=== PATIENT | female | born 1980 | race Asian ===

== ENCOUNTER 2017-03-06 18:36 | Emergency (ER) | payer OTHER ==
[2017-03-06 18:50] VITALS: BP 120/86; PULSE 90; RESP 14; O2SAT 97
[2017-03-06] MEDS ORDERED: LETS SOLN TOPICAL 1 EA SYR TP ONE (19:20)
--- NOTE | 2017-03-06 20:14 | UCPHY ---
H & P Time Seen by Provider: 03/06/17 19:12 Patient Type: New HPI/ROS: This patient has a left ring finger laceration from a knife at the cutting frozen immediate home shortly prior to arrival. She reports mild pain and bleeding. The bleeding slowed with direct pressure prior to arrival. ROS: No numbness. No difficulty moving the affected finger. No other injuries. 5 point ROS is otherwise negative. Past Medical/Surgical History: Otherwise healthy with immunizations up today Smoking Status: Never smoked Physical Exam: Physical Exam Vital signs are normal. General: No acute distress Eyes: Pupils equal and react to light. Extraocular motions are intact. Cardiac: Brisk capillary refill is intact throughout. Skin: No rash or pallor. There is a 1.3 cm full-thickness laceration of the dorsum of the left ring finger. Subcutaneous tissues evident but no tendon injury or other deeper structures are injured. There are no foreign bodies. There is minimal bleeding. Neuro: Alert and oriented x3 with no sensorimotor deficits. Constitutional: Initial Vital Signs Temperature (C) 37 C 03/06/17 18:46 Heart Rate 90 03/06/17 18:46 Respiratory Rate 14 03/06/17 18:46 Blood Pressure 120/86 H 03/06/17 18:46 O2 Sat (%) 97 03/06/17 18:46 O2 Delivery Mode Room Air Allergies/Adverse Reactions: albuterol sulfate [From Ventolin HFA] Allergy (Verified 03/06/17 18:45) MDM/Departure - MDM Procedures: The wound is 1.3 cm full-thickness. The wound was copiously irrigated with saline. The wound was explored for foreign bodies and none were found. The wound was prepped and draped in the normal sterile fashion. The wound was anesthetized using topical lidocaine followed by 1% plain lidocaine local injection, 27 gauge needle-less than 1 mL with good effect. The edges were reapproximated using 4 0 Prolene-4 running sutures with good hemostasis and cosmesis. The patient tolerated the procedure well. There were no complications. Patient is placed in tube gauze and we counseled regarding wound care. Medications Given: Discontinued Medications Tetracaine/Epinephrine/Lidocaine (Lets Soln Topical) 1 ea TP EDNOW ONE Stop: 03/06/17 19:21 Last Admin: 03/06/17 19:25 Dose: 1 ea - Depart Disposition: Home, Routine, Self-Care Clinical Impression: Finger laceration Qualifiers: Encounter type: initial encounter Qualified Code(s): S61.219A - Laceration without foreign body of unspecified finger without damage to nail, initial encounter Condition: Good Instructions: Finger Laceration (ED) Additional Instructions: Diagnosis: Finger laceration Plan: Keep the wound clean and dry for the next 2 days. Then clean it daily with warm soapy water Tylenol or ibuprofen for pain control as needed Return for suture removal in 10-12 days Return sooner for redness, discharge or other concerns for infection. Referrals: TONIA JETT [Primary Care Provider] - As per Instructions - PQRS PQRS Measurement: NA
[2017-03-17 17:19] VITALS: TEMP 98.2
== END 2017-03-06 20:25 | disposition home or self-care (01) ==
LOC: CED 18:36
PROC: 0HQGXZZ Repair Left Hand Skin, External Approach (ICD-10-PCS; principal; 2017-03-06)
DX: S61.215A Laceration without foreign body of left ring finger without damage to nail, initial encounter (principal); W26.0XXA Contact with knife, initial encounter
CPT/HCPCS: 12001-PO; 99203-PO; G0463-PO

== ENCOUNTER → 2018-09-13 | Outpatient (CLI) | payer OTHER | LOC: FIMAGING 13:27 | PROVIDERS: ATTEND Obstetrics & Gynecology | DX: Z36.82 Encounter for antenatal screening for nuchal translucency (principal); O09.521 Supervision of elderly multigravida, first trimester; Z3A.11 11 weeks gestation of pregnancy ==

== ENCOUNTER → 2018-10-11 | Outpatient (CLI) | payer OTHER | LOC: FIMAGING 14:32 | PROVIDERS: ATTEND Obstetrics & Gynecology | DX: O09.522 Supervision of elderly multigravida, second trimester (principal); O09.212 Supervision of pregnancy with history of pre-term labor, second trimester; Z3A.16 16 weeks gestation of pregnancy ==

== ENCOUNTER → 2018-10-25 | Outpatient (CLI) | payer OTHER | LOC: FIMAGING 14:56 | PROVIDERS: ATTEND Obstetrics & Gynecology | DX: O09.522 Supervision of elderly multigravida, second trimester (principal); O09.292 Supervision of pregnancy with other poor reproductive or obstetric history, second trimester; Z3A.18 18 weeks gestation of pregnancy ==

== ENCOUNTER → 2018-11-08 | Outpatient (CLI) | payer OTHER | LOC: FIMAGING 09:45 | PROVIDERS: ATTEND Obstetrics & Gynecology | DX: O09.522 Supervision of elderly multigravida, second trimester (principal); O09.292 Supervision of pregnancy with other poor reproductive or obstetric history, second trimester; Z3A.20 20 weeks gestation of pregnancy ==

== ENCOUNTER → 2018-11-24 | Outpatient (CLI) | payer OTHER | LOC: FIMAGING 14:36 | PROVIDERS: ATTEND Obstetrics & Gynecology | DX: O09.522 Supervision of elderly multigravida, second trimester (principal); Z3A.22 22 weeks gestation of pregnancy ==

== ENCOUNTER 2019-01-17 15:09 | Observation (INO) | payer OTHER ==
[2019-01-17] MEDS ORDERED: BETAMETHASONE IM SYRINGE IM ONE (16:00)
--- NOTE | 2019-01-17 19:09 | GHP ---
[f rep st] HISTORY AND PHYSICAL DATE OF ADMISSION: 01/17/2019 ADMITTING DIAGNOSES: 1. IUP at 30 weeks and 1 day. 2. Short cervical length. 3. History of premature cervical dilation with ultimate term delivery. HISTORY OF PRESENT ILLNESS: The patient is a 38-year-old, G2, P1-0-0-1, at 30 weeks and 1 day with estimated due date 03/27/2019 by last menstrual period, , and consistent with 8 week ultrasound. The patient presented to [facility] today for follow up and saw Dr. Tellez. Her is complicated by AMA with negative genetic testing and also a history of premature cervical dilation with ultimate term delivery. The patient had reassuring cervical length surveillance with [facility] from 16 to 24 weeks. The patient then had an episode of vaginal spotting at 20 weeks and was assessed in our office and her cervix was reportedly closed on exam but found to be shortened at 1.5 cm and 5mm with Valsalva. Pt was started on vaginal progesterone, but stopped 1 week ago secondary to side effects. Patient denies any contractions or menstrual-type cramping. The patient does endorse [place] that she has had since 20 weeks, these are not painful. The patient denies any leakage of fluid or vaginal bleeding. Patient states there is good movement. The patient also has gestational diabetes that is diet-controlled in this . The patient did have a low-lying placenta noted on 20 week ultrasound but resolved at 22 weeks on ultrasound. PAST OB HISTORY: In 06/2014, she delivered a viable male , at 39 weeks 3 days, weighing 7 pounds 10 ounces. The patient did have premature cervical dilation at 29 weeks and dilated to 4 cm; she was admitted to [facility] until 32 weeks, but then delivered term. In 08/2016, she had a 6-week SAB, no D and C. GYNECOLOGIC HISTORY: Age of menarche 12. Cycles are every 26 to 30 days for 3- 4 days. LMP 06/20/2018. The patient denies a history of abnormal Pap smears or any exposure to STDs. CURRENT MEDICATIONS: Include OTC vitamins with DHA. ALLERGIES: Ventolin; adverse effect of increased heart rate and shortness of breath. MEDICAL HISTORY: Remarkable for PCOS, history of palpitations with a negative workup at [facility], gastroesophageal reflux disease, kidney stone which was an incidental finding on CT, patient asymptomatic. PAST SURGICAL HISTORY: Endoscopy in 2010 and 2014. Hysterosalpingogram. Left broken wrist at age 11. FAMILY HISTORY: Paternal grandmother, type 2 diabetes. Mother, thyroid dysfunction. Father, alcohol abuse and prostate cancer. Paternal grandmother, colon cancer, at age 70. SOCIAL HISTORY: Patient is . 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 She lives with her and their son. She denies any alcohol, tobacco, or illicit drug use during the . LABS: H and H first-trimester, 15.6 and 40.3, platelets 261. Blood type is B positive, antibody negative. One-hour Glucola was 168; 3 hour Glucola was 84, 176, 179, 152. RPR nonreactive. Rubella immune. Hepatitis B surface antigen negative. HIV negative. Trio screen negative in 2013. Standard panel negative 08/2018. TSH 1st trimester, 1.03. Urine drug screen, UA and culture negative. Pap, gonorrhea, and chlamydia cultures negative. AFP negative and Innatal screen negative. Varicella immune. REVIEW OF SYSTEMS: 10-point review of systems is negative; pertinent positives noted in HPI. PHYSICAL EXAMINATION: VITAL SIGNS: On admission vital signs are stable. Patient is afebrile at 37.2, heart rate 116, respirations 16, blood pressure 115 /79. GENERAL APPEARANCE: She is well-nourished, well-developed female. Alert and oriented x3. No apparent distress. SKIN: Warm, dry without rash. NEURO: Grossly intact. CARDIOVASCULAR: Regular rate and rhythm. LUNGS: Clear to auscultation bilaterally. ABDOMEN: Gravid, soft, nontender. PELVIC: Exam is deferred at this time. EXTREMITIES: Normal to inspection without calf tenderness or edema. heart tones are reassuring, Category I tracing with baseline 140 bpm, positive accels, no decels and moderate variability. On toco, initially there were 2 contractions seen and none since. ASSESSMENT/PLAN: Patient is a 38-year-old, G3, para 1-0-0-1, at 30 weeks and 1 day, who presents with shortened cervical length 1. Admit to Labor and Delivery for observation. 2. With a shortened cervix, patient is at increased risk of delivery, even though patient is asymptomatic at this time. 3. Did not perform SVE secondary to patient being asymptomatic and no contractions seen on toco. 4. A course of betamethasone was started for lung maturity; 1st dose given at 1620 this evening, will repeat in 24 hours. 5. Plan per Maternal Medicine, Dr. Tellez. 6. Will monitor for any signs or symptoms of labor. /[id number]/MODL MTDD
--- NOTE | 2019-01-18 09:07 | OBPROG ---
Labor Progress Note Assessment/Plan: Assessment: 38 at 30w1d with cervical shortening, but currently no signs of PTL. Plan- 2nd betamethasone injection this afternoon and then dc home with PTL precautions. FU in office in 1-2 weeks. Tigist Shields MD, FACOG 01/18/19 09:06 Subjective/Intrapartum Course: 01/18/19 09:04 Pt doing well. Occasional contraction - no different than the past few weeks. No VB, no LOF. Good FM. Slept some overnight, but dry air in hospital is bothersome. . 01/18/19 09:06 Objective: 37.2 14 115 117/68 gen - pleasant, NAD, nl affect, not anxious HEENT - grossly wnl neck supple CV - RRR chest - CTAB abd - soft, gravid, NT, C/W 30 wk ext - no calf tenderness, no edema skin - warm, dry FHR last night 120s Oxytocin Orders Assessment - Pre-Induction/Augmentation Assessment Gestational Age: 30 week(s) and 1 day(s) ICD10 Worksheet Patient Problems: Problems Problem Status Onset Cervix funneling complicating Acute Finger laceration Acute Normal labor Acute
--- NOTE | 2019-01-18 09:25 | PDDCSUM ---
Discharge Summary Discharge Summary: Admit 01/17/19 Discharge 01/18/19 Hosp course: 38 admitted at 30w1d after cervical shortening and funneling noted at MFM exam, though no other symptoms of labor. During her period of observation, she did not have any regular contractions. No vaginal bleeding, no loss of fluid. VSS and afeb. She received a course of Betamethasone -on 01/17/19 and 01/18/19. She is to follow up in the office as previously scheduled in 2 weeks. No further cervical lengths, only digital exams per MFM recommendation. labor precautions reviewed. Tigist Shields MD, FACOG [facility]
[2019-01-18] MEDS ORDERED: BETAMETHASONE IM SYRINGE IM ONE (16:00)
== END 2019-01-18 18:30 | disposition home or self-care (01) ==
LOC: FLD 15:09 → OBSVTOIN 15:09 → INTOOBSV 15:09
PROVIDERS: ADMIT Obstetrics & Gynecology; ATTEND Hospitalist
PROC: 3E0E73Z Introduction of Anti-inflammatory into Products of Conception, Via Natural or Artificial Opening (ICD-10-PCS; principal; 2019-01-17)
DX: O47.03 False labor before 37 completed weeks of gestation, third trimester (principal); O26.873 Cervical shortening, third trimester; O24.410 Gestational diabetes mellitus in pregnancy, diet controlled; O09.523 Supervision of elderly multigravida, third trimester; Z3A.30 30 weeks gestation of pregnancy
CPT/HCPCS: 59025; G0378; J0702

== ENCOUNTER → 2019-01-17 | Outpatient (CLI) | payer OTHER | LOC: FIMAGING 14:05 | PROVIDERS: ATTEND Obstetrics & Gynecology | DX: O09.523 Supervision of elderly multigravida, third trimester (principal); O26.873 Cervical shortening, third trimester; Z3A.30 30 weeks gestation of pregnancy ==

== ENCOUNTER 2019-02-11 00:02 | Observation (INO) | payer OTHER ==
--- NOTE | 2019-02-11 02:19 | PDGENHP ---
History and Physical - Chief Complaint vaginal bleeding - History of Present Illness 38 at 33w5d presents with vaginal bleeding. Had some bleeding after a BM this morning, then this evening when was about to shower, noticed some more with wiping. Has some spotting on pad she wore here. Good FM, no LOF, not feeling any contractions. NO ssx preeclampsia. This c/b: Shortened cervix at 30 weeks - with a course of betamethasone given at that time , all per MFM. Hx of dilation / incompetent cervix. Was hospitalized from 29-32 weeks with her first , but ultimately delivered at 39 weeks, though had painless contractions. Arrived at 7 cm dilated only because was leaking fluid, then progressed painlessly to 10 cm, pushed for 2 hours and had an = not painful per pt. GDM - has been diet controlled - failed 2 values on the 3 hour test. Placenta previa - resolved by 28 wks. labs: B pos RubImm GBS unknown Innatal neg Ob hx - as above, 06/2014 6 wk SAB History Information - Allergies/Home Medication List Allergies/Adverse Reactions: albuterol sulfate [From Ventolin HFA] Allergy (Verified 03/06/17 18:45) Home Medications: Docosahexanoic Acid [ Dha] 200 mg PO DAILY 01/17/19 [Last Taken Unknown] I have personally reviewed and updated: family history, medical history, social history, surgical history Past Medical History: gest DM - diet controlled x 2. GERD. nephrolithiasis - Surgical History Additional surgical history: none - Family History Positive for: cancer (prostate, ), diabetes type II (PGM), hypertension (father) - Social History Smoking Status: Never smoked Alcohol Use: None Drug Use: None Review of Systems Review of Systems: ROS: 10pt was reviewed & negative except for what was stated in HPI & below Physical Exam Physical Exam: Speculum exam - small string of blood tinged mucous at os. SVE - 3 cm dilated / 50 / -3 US done - cephalic presentation confirmed. MVP 4.17cm, active fetus. NO previa. 37.5 107 18 123/78 FHR 135 reactive toco - q 5-7 min Constitutional: no apparent distress, appears nourished Eyes: PERRL, anicteric sclera, EOMI Ears, Nose, Mouth, Throat: moist mucous membranes, hearing normal, ears appear normal Cardiovascular: regular rate and rhythym Respiratory: no respiratory distress Gastrointestinal: normoactive bowel sounds, soft, non-tender abdomen, other ( gravid) Genitourinary: no bladder fullness Skin: warm, normal color Musculoskeletal: full muscle strength, no muscle tenderness Neurologic: AAOx3 Psychiatric: interacting appropriately, anxious Assessment & Plan Assessment: 38 33W5D with vaginal bleeding - likely secondary to cervical change. cervical dilation - concern for labor. S/P betamethasone 01/17-01/18. GDMA1 Plan: Check GBS in AM (just did digital cervical exam this evening). Rescue / repeat dose of betamethasone indicated per ACOG guidelines as concern for delivery in next 1- 7 days, <34 weeks, and greater than 2 weeks since initial course of betamethasone. Anticipate blood gluc to increase after betamethasone. Continue with observation. If cervix stable in AM and no further bleeding, could consider dc home, but currently, need more information. Tigist Shields MD, FACOG
[2019-02-11] MEDS ORDERED: BETAMETHASONE IM SYRINGE IM ONE (02:30)
--- NOTE | 2019-02-11 07:05 | OBPROG ---
Labor Progress Note Assessment/Plan: Assessment: 38 at 33w5d with contractions and cervical dilation to 3 cm. NO further vag bleeding. 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 S/p rescue dose betameth at 0315. GDMA1 Plan: Continue observation for now. Need to obtain GBS culture. Will treat with PCN for unknown status. If is appearing to labor, will need to get labs and start IV. Tigist Shields MD, FACOG, [facility] 02/11/19 07:39 Subjective/Intrapartum Course: 02/11/19 07:06 Pt was able to sleep intermittently, but is feeling contractions now - which she wasn't on arrival. No further vaginal bleeding. Objective: gen - pleasant, resting quietly in bed, appears comfortable. SVE - no change, no blood on glove after exam - SVE Dilation (cm): 3 Effacement (%): 50 Station: -3 Membranes: Intact - Contraction Pattern Assessment Current Contraction Pattern: Irregular - FHR Assessment Howell FHR (bpm): 140 FHR Pattern Variability: Moderate FHR Category: 1 Oxytocin Orders Assessment - Pre-Induction/Augmentation Assessment Gestational Age: 33 week(s) and 5 day(s) ICD10 Worksheet Patient Problems: Problems Problem Status Onset Cervix funneling complicating Acute Finger laceration Acute Normal labor Acute
[2019-02-11] MEDS ORDERED: PENICILLIN G POTASSIUM 5,000,000 UNIT in D5W 150 ML IV ONE (07:35)
[2019-02-11] MEDS ORDERED: IBUPROFEN 600 MG TAB PO PRN (09:04)
[2019-02-11] MEDS ORDERED: LIDOCAINE 1% 300 MG/30 ML SDV SC PRN (09:04)
[2019-02-11] MEDS ORDERED: MISOPROSTOL 200 MCG TAB PR PRN (09:04)
[2019-02-11] MEDS ORDERED: LR 1,000 ML IV PRN (09:04)
[2019-02-11] MEDS ORDERED: OXYTOCIN/RINGERS LACTATE 1,000 ML IV PRN (09:04)
[2019-02-11] MEDS ORDERED: EPSOM SALT 454 GM TP PRN (09:04)
[2019-02-11] MEDS ORDERED: OLIVE OIL 118 ML BTL MISC PRN (09:04)
--- NOTE | 2019-02-11 09:18 | OBPROG ---
Labor Progress Note Assessment/Plan: Assessment: IUP at 33w5d ctxns BMZ x2 at 30 wks, rescue BMZ at 3a GBS unknown Plan: cervix change and concern for active labor, cont PCN for unknown 02/11/19 09:13 Subjective/Intrapartum Course: 02/11/19 07:06 Pt was able to sleep intermittently, but is feeling contractions now - which she wasn't on arrival. No further vaginal bleeding. 02/11/19 09:16 Pt states ctxns only tight, no pain and likely could sleep through if at home. no bld with last trip to bathroom. on exam, cx was 5/75/-2 Objective: 02/11/19 08:20 - SVE Dilation (cm): 5 Effacement (%): 75 Station: -2 Membranes: Intact - Contraction Pattern Assessment Current Contraction Pattern: Regular (q 3-4, palpable), Irregular - FHR Assessment Howell FHR (bpm): 130 FHR Pattern Variability: Moderate FHR Category: 1 Oxytocin Orders Assessment - Pre-Induction/Augmentation Assessment Gestational Age: 33 week(s) and 5 day(s) ICD10 Worksheet Patient Problems: Problems Problem Status Onset labor in third trimester Acute
[2019-02-11] MEDS: PENICILLIN G POTASSIUM 2,500,000 UNIT in D5W 150 ML IV SCH ×2 (12:37→16:34)
[2019-02-11] MEDS ORDERED: LIDOCAINE 1% 300 MG/30 ML SDV ONE (13:49)
[2019-02-11] MEDS ORDERED: OLIVE OIL 118 ML BTL MISC ONE (13:49)
[2019-02-11] MEDS ORDERED: AMMONIA AROMATIC 1 EACH AMP IH ONE (13:49)
[2019-02-11] MEDS ORDERED: OXYTOCIN 10 UNIT/ML VIAL ONE (13:50)
[2019-02-11] MEDS ORDERED: MISOPROSTOL 200 MCG TAB ONE (13:50)
--- NOTE | 2019-02-11 18:01 | OBPROG ---
Labor Progress Note Assessment/Plan: Assessment: IUP at 33w5d ctxns - advanced cervical dilation - STABLE BMZ x2 at 30 wks, rescue BMZ at 3a GBS unknown - abx today - NOW WILL STOP AND IF CONT STABLE - WILL CHECK GBS TOMORROW PM GDM - A1 Plan: Will keep pt in house due to advanced dilation at this gestation. monitoring BS per routine, NSTs q shift 02/11/19 09:13 02/11/19 17:56 Subjective/Intrapartum Course: 02/11/19 07:06 Pt was able to sleep intermittently, but is feeling contractions now - which she wasn't on arrival. No further vaginal bleeding. 02/11/19 09:16 Pt states ctxns only tight, no pain and likely could sleep through if at home. no bld with last trip to bathroom. on exam, cx was 5/75/-2 02/11/19 17:59 Pt not feeling any discomfort with ctxns. Has been trying to rest - really feels these ctxns no different than for the last month. some light vag bleeding when urinating. GFM. no LOF. Disc stable exam with pt/husb. Will cont to observe here in hospital - q shift for NSTs and pt advised to alert us for any change. will stop abx and check GBS culture in 24 hrs Objective: 02/11/19 08:20 Patient ABO/Rh B POSITIVE 02/11/19 09:45 - SVE Dilation (cm): 5 Effacement (%): 75 Station: -2 Membranes: Intact - Contraction Pattern Assessment Current Contraction Pattern: Regular (q 3-4, palpable), Irregular (q 6 - 10 min) - FHR Assessment Howell FHR (bpm): 130 FHR Pattern Variability: Moderate FHR Category: 1 Oxytocin Orders Assessment - Pre-Induction/Augmentation Assessment Gestational Age: 33 week(s) and 5 day(s) ICD10 Worksheet Patient Problems: Problems Problem Status Onset labor in third trimester Acute
--- NOTE | 2019-02-12 08:16 | OBPROG ---
Labor Progress Note Assessment/Plan: Assessment: 38 at 33w5d with contractions and cervical dilation to 3 cm. NO further vag bleeding. No cervical warp changer 5+ hours, but pt feeling contractions more. S/p rescue dose betameth at 0315. GDMA1 Plan: Continue observation for now. Need to obtain GBS culture. Will treat with PCN for unknown status. If is appearing to labor, will need to get labs and start IV. Tigist Shields MD, FACOG, [facility] 02/11/19 07:39 A/P: 38 at 33w6d, contractions, advanced cervical dilation to 5cm - but no change during day yesterday - will not repeat exam today as no increase in contractions. Some VB - now only with wiping - likely from cervical change. S/P rescue dose betamethasone on 02/11/19. GBS unknown / - received PCN yesterday, but stopped when delivery did not seem imminent. Will observe, obtain GBS tomorrow prior to considering dc home. Will check in with MFM tomorrow when here for any additional input. GDMA1 = continue with diet and checking blood sugars - good control. Tigist Shields MD, FACOG 02/12/19 08:16 Subjective/Intrapartum Course: 02/11/19 07:06 Pt was able to sleep intermittently, but is feeling contractions now - which she wasn't on arrival. No further vaginal bleeding. 02/11/19 09:16 Pt states ctxns only tight, no pain and likely could sleep through if at home. no bld with last trip to bathroom. on exam, cx was 5/75/-2 02/11/19 17:59 Pt not feeling any discomfort with ctxns. Has been trying to rest - really feels these ctxns no different than for the last month. some light vag bleeding when urinating. GFM. no LOF. Disc stable exam with pt/husb. Will cont to observe here in hospital - q shift for NSTs and pt advised to alert us for any change. will stop abx and check GBS culture in 24 hrs 02/12/19 08:23 Pt doing well. Was able to get some sleep last night and relax. Contractions are mild, and no significant change. Only having some bloody mucous with wiping , nothing on pad she wore all night. Good FM, no LOF. Objective: 02/11/19 08:20 Patient ABO/Rh B POSITIVE 02/11/19 09:45 36.3 103 106/63 NST not done yet today. 130 reactive at 2230 last night. No blood on peripad. ' Gen - pleasant, NAD CV - RRR chest - CTAB abd - gravid, soft, NT ext - BLE calves NT, no edema - SVE Membranes: Intact - Contraction Pattern Assessment Current Contraction Pattern: Regular (q 3-4, palpable), Irregular (q 6 - 10 min) Oxytocin Orders Assessment - Pre-Induction/Augmentation Assessment Gestational Age: 33 week(s) and 5 day(s) ICD10 Worksheet Patient Problems: Problems Problem Status Onset labor in third trimester Acute
[2019-02-12] MEDS: PRENATAL DHA PO SCH (09:40)
[2019-02-13] MEDS ORDERED: PRENATAL VIT 1 EACH TAB PO SCH (08:00)
--- NOTE | 2019-02-13 09:02 | OBPROG ---
Labor Progress Note Assessment/Plan: Assessment: 38 y/o at 34 weeks with VB, contractions and advanced cervical dilation to 5cm GDMA1 HD # 2 Plan: Pt is stable at this time; no ctx's on toco or per patient overnight and this am Will not repeat exam today as no contractions noted No further VB this morning; pt had some bloody mucus with wiping overnight- likely from multiple exams S/P rescue dose of betamethasone on 02/11/19 Will obtain GBS prior to d/c home today FBS this am good at 80; continue with diet as BS well controlled Pt to keep appointment with [facility] this week on 02/15/19 PTL precautions given to pt Recommend increasing water (3-5 L/day) and fiber in diet as well as starting a stool softener. 02/13/19 09:58 Subjective/Intrapartum Course: 02/11/19 07:06 Pt was able to sleep intermittently, but is feeling contractions now - which she wasn't on arrival. No further vaginal bleeding. 02/11/19 09:16 Pt states ctxns only tight, no pain and likely could sleep through if at home. no bld with last trip to bathroom. on exam, cx was 5/75/-2 02/11/19 17:59 Pt not feeling any discomfort with ctxns. Has been trying to rest - really feels these ctxns no different than for the last month. some light vag bleeding when urinating. GFM. no LOF. Disc stable exam with pt/husb. Will cont to observe here in hospital - q shift for NSTs and pt advised to alert us for any change. will stop abx and check GBS culture in 24 hrs 02/12/19 08:23 Pt doing well. Was able to get some sleep last night and relax. Contractions are mild, and no significant change. Only having some bloody mucous with wiping , nothing on pad she wore all night. Good FM, no LOF. 02/13/19 09:04 Pt seen and examined. Doing well, just finished breakfast. She states some bloody mucus when she wiped overnight and no further bleeding/spotting on pad this am or when she wiped. Denies any menstrual-type cramping or ctx's. She does not want another exam, since it causes bleeding and then causes her increased anxiety. Good FM noted. Denies any LOF. She states in the blood noted after she has a BM; she does admit to straining and passing hard stools. Objective: 02/11/19 08:20 Patient ABO/Rh B POSITIVE 02/11/19 09:45 - SVE Membranes: Intact - Contraction Pattern Assessment Current Contraction Pattern: Irregular (uterine irritiability) - FHR Assessment Howell FHR (bpm): 140 FHR Pattern Variability: Moderate FHR Category: 1 - Physical Exam General Appearance: WD/WN, alert, no apparent distress Abdomen: non-tender, soft, other (gravid) Skin: normal color, warm/dry Neuro/Psych: alert, normal mood/affect, oriented x 3 Oxytocin Orders Assessment - Pre-Induction/Augmentation Assessment Gestational Age: 33 week(s) and 5 day(s) ICD10 Worksheet Patient Problems: Problems Problem Status Onset labor in third trimester Acute Vaginal bleeding during , antepartum Acute - ICD10 Problem Qualifiers (1) Vaginal bleeding during , antepartum
[2019-02-13] MEDS: PRENATAL DHA PO SCH (10:44)
== END 2019-02-13 11:15 | disposition home or self-care (01) ==
LOC: FLD 00:02
PROVIDERS: ADMIT Hospitalist; ATTEND Hospitalist
DX: O26.853 Spotting complicating pregnancy, third trimester (principal); O26.873 Cervical shortening, third trimester; Z3A.33 33 weeks gestation of pregnancy
CPT/HCPCS: 59025; G0378; J0702; J2540; J2590

== ENCOUNTER 2019-03-18 01:32 | Inpatient (IN) | payer OTHER ==
[2019-03-18] MEDS ORDERED: TERBUTALINE SULFATE 1 MG/ML VIAL ONE (02:26)
[2019-03-18] MEDS ORDERED: LIDOCAINE 1% 300 MG/30 ML SDV ONE (02:26)
[2019-03-18] MEDS ORDERED: AMMONIA AROMATIC 1 EACH AMP IH ONE (02:26)
[2019-03-18] MEDS ORDERED: OLIVE OIL 118 ML BTL MISC ONE (02:26)
[2019-03-18] MEDS ORDERED: OXYTOCIN 10 UNIT/ML VIAL ONE (02:27)
[2019-03-18] MEDS ORDERED: MISOPROSTOL 200 MCG TAB ONE (02:27)
[2019-03-18] MEDS ORDERED: EPSOM SALT 454 GM TP PRN (02:31)
[2019-03-18] MEDS ORDERED: MISOPROSTOL 200 MCG TAB PO PRN (02:31)
[2019-03-18] MEDS ORDERED: OLIVE OIL 118 ML BTL MISC PRN (02:31)
[2019-03-18] MEDS ORDERED: LIDOCAINE 1% 300 MG/30 ML SDV SC PRN (02:31)
[2019-03-18] MEDS ORDERED: AMMONIA AROMATIC 1 EACH AMP IH PRN (02:31)
[2019-03-18] MEDS ORDERED: OXYTOCIN/RINGERS LACTATE 1,000 ML IV PRN (02:31)
[2019-03-18] MEDS ORDERED: IBUPROFEN 600 MG TAB PO PRN (02:31)
[2019-03-18] MEDS ORDERED: LR 1,000 ML IV PRN (02:31)
[2019-03-18 02:53] LABS: PLATELET COUNT 149 10^3/uL (150-400)
[2019-03-18] MEDS ORDERED: METHYLERGONOVINE MAL 0.2 MG/ML INJ ONE (03:40)
[2019-03-18] MEDS ORDERED: METHYLERGONOVINE MAL 0.2 MG/ML INJ IM ONE (03:43)
--- NOTE | 2019-03-18 03:47 | OBDEL ---
Info Type: Vaginal Presentation at Delivery: Vertex GBS+: No Intrapartum Medications: Generic Name Dose Route Start Last Admin Trade Name Freq PRN Reason Stop Dose Admin Oxytocin/Lactated Ringer's 1,000 mls @ 0 mls/hr 03/18/19 02:31 03/18/19 02:59 Pitocin 20 Units/Lr (Premix) IV 1,000 mls PRN PRN Administration Post bleeding Wide Open Discontinued Medications Generic Name Dose Route Start Last Admin Trade Name Freq PRN Reason Stop Dose Admin Ibuprofen 600 mg 03/18/19 02:31 03/18/19 03:28 Motrin PO 600 mg ONCE PRN Administration post , pain Indications for Delivery: Spontaneous Labor, SROM Vaginal Delivery - Delivery Provider Delivery Physician/CNM: Luz Sagastume - Labor and Delivery Onset of Contractions Date: 03/18/19 Onset of Contractions Time: 01:23 Onset of Contractions Type: Spontaneous Rupture of Membranes Date: 03/18/19 Rupture of Membranes Time: 01:00 Rupture of Membranes Type: Spontaneous Amniotic Fluid Color: Clear Dilation Complete Date: 03/18/19 Dilation Complete Time: 02:31 Placenta Delivery Date: 03/18/19 Placenta Delivery Time: 03:04 Total Hours of Labor: 1 Non-surgical Procedures: Episiotomy Episiotomy: Midline Repair: 3-0, Vicryl Vaginal Sponge Count Correct: Yes Vaginal Needle Count Correct: Yes Vaginal Sweep Performed: Yes EBL: 400 Delivery Events: None Data SERGIO: 03/27/19 Gestational Age: 38 week(s) and 5 day(s) Howell Delivery Date: 03/18/19 Delivery Time: 02:53 Sex of : Female Score (1 Min): 9 Score (5 Min): 10 ICD10 Worksheet Patient Problems: Problems Problem Status Onset (spontaneous vaginal delivery) Acute
--- NOTE | 2019-03-18 04:44 | GHP ---
[f rep st] PREOP HISTORY AND PHYSICAL DATE OF ADMISSION: 03/18/2019 HISTORY: Upon admission, the patient is a 38-year-old G3, P1, A1 at 38+ weeks gestation with an brenda mated due date of 03/27/2019 who presents in active labor. Patient had spontaneous rupture of membra larry at 0100 with clear fluid. The patient had onset of contractions en route to the hospital at 0123 . The patient was having contractions upon admission and they steadily were increasing frequency to every 3 minutes and the patient began having rectal pressure with contractions. The fluid was gettin g a bit blood-stained. The patient had previously been having good movement. The patient has a history of gestational diabetes and did not check her blood sugar this evening, but the last 1 afte r lunch was in good range in the 100s. LABS: Include maternal blood type B positive with negative antibody screen. RPR nonreactiv e. Rubella immune. Hepatitis B surface antigen negative. HIV negative. Standard panel was all neg ative. Thyroid test was normal. Urine drug screen negative. Urinalysis and culture negative. Pap smear negative with negative HPV. Gonorrhea and chlamydia negative. Verifi testing was negative wit h MSAFP normal. In 1st trimester, the patient had a 1-hour Glucola that was elevated and a 3-hour GT T showed 2 abnormal values. 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 She has remained diet controlled with good range blood sugars except during a short time after she re ceived the betamethasone for labor. GBS culture was negative. Varicella immune. Initial he matocrit in 40% and this was still in normal range at the end of . CARE: The patient had care with [facility] since 8 weeks gestation. Th e patient has a history of an incompetent cervix with her first diagnosed at [address] also complicated with gestational diabetes, which was checked early in the 1st trimester due to a history of PCOS. As it was abnormal so early, it was felt that the patient had probably pr e-existing diabetes, but she reports that the check was negative. Hemoglobin A1c have bee n normal for the patient in between pregnancies. The patient has a history of acid reflux occasional ly requiring Prilosec. During this , the patient also underwent an early 1-hour Glucola at 10 weeks' gestation and this was abnormal. Followup 3-hour GTT was also abnormal and the patient aga in had followup with Endocrinology. The patient had an ultrasound at 16 weeks gestation with a speci alist showing her cervix was great length at 6.5 cm. Due to the history of early cervical dilation w ith her last , the specialists saw the patient every 2 weeks for cervical checks. Placenta was identified to be low-lying. Each 2 week cervical length showed shortening. By 20 weeks, the low -lying placenta had cleared and the cervix was down to 3.3 cm. Due to the diabetes, the patient was having serial growth ultrasounds, which showed good growth through the and normal flu id. Last growth ultrasound was approximately 3 weeks ago, at which time the baby was estimated at 85 th percentile with the AC greater than 98th percentile. At 29 weeks, an ultrasound showed cervical l ength now had decreased to 1.5 cm. The patient was started on vaginal progesterone. The specialist a lso found the cervical length 1.8 cm with 5 mm funneling. The patient was observed on labor and deli very and given betamethasone. At that time, she had a scant amount of vaginal bleeding. The patient was again assessed for contractions at 34 weeks and was found to be 4 to 5 cm dilated. At [facility], the patient was observed several days and did not progress and was discharged home with advanced dilation. PAST MEDICAL HISTORY: The patient with a history of gestational versus underlying diabetes, but norm al hemoglobin A1c, history of GERD with no current medications, but occasional Prilosec in the past, history of an incidental finding of kidney stone on CT scan years ago, but no symptoms. Possible miah gnosis of PCOS in 2011 and used metformin x1 year. After last was having regular spontaneo us contractions. PAST SURGICAL HISTORY: Negative. PAST OBSTETRIC HISTORY: In June 2014, a male at 7 pounds 10 ounces at 39+ weeks' gestation after a 2 hour labor with augmentation after spontaneous rupture of membranes when the patient was 7 cm, vag inal delivery. In August 2016, a 6 week SAB. The in 2013 was complicated with la bor with dilation of 4 cm at 29 weeks and hospitalized many weeks, but then delivered at term. ALLERGIES: No known drug allergies. CURRENT MEDICATIONS: Only vitamins. SOCIAL HISTORY: The patient is , lives with her and their son. 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 The patient is a nonsmoker. No alcohol or drug use. PHYSICAL EXAMINATION: GENERAL APPEARANCE: Upon admission, the patient is a well-developed, well-nou rished female in moderate discomfort with contractions. VITAL SIGNS: Reveal the patient is af ebrile with normal blood pressures. See nursing documentation for full details. monitoring re veals category 1 tracing with a baseline in the 130s with good variability and accelerations. Catego ry 2 tracing after complete dilation with pushing with variable decelerations with pushing. CERVIX: Initial cervical exam at approximately 2:30 revealed the patient was completely dilated at 0 station . Clear fluid was noted. EXTREMITIES: Nontender and no edema. ASSESSMENT: Intrauterine at term with spontaneous rupture of membranes and onset of contra ctions at complete dilation shortly after presentation, gestational diabetes diet controlled, advance d maternal age, blood type B positive with negative group B strep. PLAN: Expect vaginal delivery soon. Patient ready to start pushing. /[id number]/MODL
[2019-03-18] MEDS: ACETAMINOPHEN 325 MG TAB PO PRN ×3 (09:37→21:42)
[2019-03-18] MEDS: IBUPROFEN 600 MG TAB PO PRN ×3 (09:37→21:43)
--- NOTE | 2019-03-18 10:58 | OBPP ---
Progress Note Assessment/Plan: Assessment: 38 y/o PPD 0 s/p Plan: Regular diet. Encourage PO pain meds and ambulation. support and routine PPC. 03/18/19 10:56 Subjective/ Course: 03/18/19 10:55 Pt is doing well this am. She has min cramping controlled with PO Ibuprofen and Tylenol. She is ambulating and voiding and happy to have regular diet without restrictions for GDM. Breast feeding is going well and baby is doing well. Objective: 03/18/19 02:00 Patient ABO/Rh B POSITIVE 03/18/19 02:00 Temp Pulse Resp BP Pulse Ox 36.9 C 79 18 112/82 H 03/18/19 05:55 03/18/19 05:55 03/18/19 05:55 03/18/19 05:55 Uterine Position/Fundal Height: Umbilicus -2 Uterine Tone: Firm Physical Exam - Physical Exam General Appearance: WD/WN, alert, no apparent distress Neck: non-tender, full range of motion, supple Respiratory: chest non-tender, lungs clear, normal breath sounds Cardiac/Chest: regular rate, rhythm Abdomen: normal bowel sounds Extremities: swelling (tr), Rema's sign (neg)
[2019-03-19] MEDS: ACETAMINOPHEN 325 MG TAB PO PRN ×4 (04:24→22:20)
[2019-03-19] MEDS: IBUPROFEN 600 MG TAB PO PRN ×4 (04:25→22:19)
--- NOTE | 2019-03-19 13:46 | OBPP ---
Progress Note Assessment/Plan: Assessment: S/P Plan: routine care, will check hct today 03/19/19 13:44 03/19/19 13:47 Subjective/ Course: 03/18/19 10:55 Pt is doing well this am. She has min cramping controlled with PO Ibuprofen and Tylenol. She is ambulating and voiding and happy to have regular diet without restrictions for GDM. Breast feeding is going well and baby is doing well. 03/19/19 13:48 Pt doing well. using ibu/tyl for cramps. bottom not too sore - able to ambulate better than after first child. urinating fine. bld is very light as baby has been cluster feeding. latch is good - milk not in yet. hct ordered for today - not done yet. Objective: 03/18/19 02:00 Patient ABO/Rh B POSITIVE 03/18/19 02:00 Temp Pulse Resp BP Pulse Ox 37.3 C 101 H 16 102/68 93 03/19/19 10:30 03/19/19 10:30 03/19/19 10:30 03/19/19 10:30 03/19/19 10:30 Uterine Position/Fundal Height: Umbilicus -2 Uterine Tone: Firm Physical Exam - Physical Exam Extremities: non-tender, pedal edema (mild) Skin: normal color, warm/dry Neuro/Psych: alert, normal mood/affect
[2019-03-19] MEDS: FERRO-SEQUELS 65 MG TAB.ER PO SCH (22:22)
[2019-03-20] MEDS: IBUPROFEN 600 MG TAB PO PRN ×2 (03:58→10:15)
[2019-03-20] MEDS: ACETAMINOPHEN 325 MG TAB PO PRN ×2 (03:58→10:15)
[2019-03-20 08:31] VITALS: BP 103/71
--- NOTE | 2019-03-20 08:48 | OBPP ---
Progress Note Assessment/Plan: Assessment: 38 G3now P2 PPD#2 s/p at 38+ weeks, doing well. Mild anemia. Plan: DC home, dc instructions reviewed, including ssx PP depression. To take iron. Tigist Shields MD, FACOG 03/20/19 08:47 Subjective/ Course: 03/18/19 10:55 Pt is doing well this am. She has min cramping controlled with PO Ibuprofen and Tylenol. She is ambulating and voiding and happy to have regular diet without restrictions for GDM. Breast feeding is going well and baby is doing well. 03/19/19 13:48 Pt doing well. using ibu/tyl for cramps. bottom not too sore - able to ambulate better than after first child. urinating fine. bld is very light as baby has been cluster feeding. latch is good - milk not in yet. hct ordered for today - not done yet. 03/20/19 09:56 Pt doing well. Ambulating, voiding, had a BM, and kai reg diet without difficulty. Mod lochia. going well. No hx of depression. Objective: 03/19/19 14:20 Patient ABO/Rh B POSITIVE 03/18/19 02:00 Temp Pulse Resp BP Pulse Ox 36.6 C 87 16 103/71 92 03/20/19 08:00 03/20/19 08:00 03/20/19 08:00 03/20/19 08:00 03/20/19 08:00 gen - pleasant, NAD CV - RRR chest - CTAB abd - soft, NT, + BS, fundus firm at u-3 ext - trace edema, no calf tenderness perineum - repair intact, minimal edema Uterine Position/Fundal Height: Umbilicus -2 Uterine Tone: Firm
[2019-03-20] MEDS: FERRO-SEQUELS 65 MG TAB.ER PO SCH (09:03)
--- NOTE | 2019-03-20 10:06 | OBGCSDC ---
General Delivery Information - General Info : 3 Para: 2 Abortions: 1 Type: Vaginal L&D Analgesia/Anesthesia Type: None Admission Date: 03/18/19 Labs: Patient ABO/Rh B POSITIVE 03/18/19 02:00 Hct 32.8 % (38.0-47.0) L 03/19/19 14:20 - Hospital Course : 03/18/19 10:55 Pt is doing well this am. She has min cramping controlled with PO Ibuprofen and Tylenol. She is ambulating and voiding and happy to have regular diet without restrictions for GDM. Breast feeding is going well and baby is doing well. 03/19/19 13:48 Pt doing well. using ibu/tyl for cramps. bottom not too sore - able to ambulate better than after first child. urinating fine. bld is very light as baby has been cluster feeding. latch is good - milk not in yet. hct ordered for today - not done yet. 03/20/19 09:56 Pt doing well. Ambulating, voiding, had a BM, and kai reg diet without difficulty. Mod lochia. going well. No hx of depression. Vaginal - Delivery Provider Delivery Physician/CNM: Luz Sagastume - Diagnosis Labor: Spontaneous Rupture of Membranes Type: Spontaneous Amniotic Fluid Color: Clear Episiotomy: Midline Repair: 3-0, Vicryl Delivery Events: None - Procedures Non-surgical Procedures: Episiotomy - Delivery Non-surgical Procedures: Episiotomy EBL: 400 Data SERGIO: 03/27/19 Gestational Age: 39 week(s) and 0 day(s) [place] Delivery Date: 03/18/19 Delivery Time: 02:53 Sex of : Female Weight (gm): 3122 g Score (1 Min): 9 Score (5 Min): 10 Discharge Information - Discharge Information Condition: Good Instruction/Follow Up: See Instruction Sheet, Two Weeks (mood check with [facility]) , Six Weeks (physician exam)
== END 2019-03-20 15:01 | disposition home or self-care (01) | DRG 807 ==
LOC: FLD 01:32 → OBSVTOIN 02:36 → FOB 05:59
PROVIDERS: ADMIT Obstetrics & Gynecology; ATTEND Obstetrics & Gynecology
PROC: 10E0XZZ Delivery of Products of Conception, External Approach (ICD-10-PCS; principal; 2019-03-18)
DX: O24.420 Gestational diabetes mellitus in childbirth, diet controlled (principal); Z37.0 Single live birth; Z3A.38 38 weeks gestation of pregnancy
CPT/HCPCS: J2210; J2590; J3105